=== PATIENT | male | born 1965 | race Caucasian/White ===

== ENCOUNTER 2021-05-31 08:24 | Emergency (ER) | payer SELFPAY ==
--- NOTE | ~2021-05-31 | CT_ITS ---
EXAMINATION: CT brain wo con DATE: 05/31/2021 09:15 INDICATION: Right facial swelling. TECHNIQUE: Computed tomography (CT) of the head was performed without intravenous contrast. The mA wa s adjusted according to patient size. Iterative reconstruction technique was employed. The dose-lengt h product was 681.00 mGy-cm. COMPARISON: None FINDINGS: There is no intracranial hemorrhage, acute infarction, or abnormal intracranial mass lesion . The ventricles are normal in size. There is mild mucosal thickening in the paranasal sinuses. There is dependent fluid in right maxillary sinus. There is a fracture of anterior wall of right maxillary sinus. There is right periorbital soft tissue swelling. There is a small left mastoid effusion. IMPRESSION: 1. Fracture of anterior wall of right maxillary sinus. 2. Normal brain. Reviewed, dictated and finalized at location A. TAT MANAGEMENT COORDINATOR
--- NOTE | ~2021-05-31 | CT_ITS ---
EXAMINATION: CT facial bones wo con DATE: 05/31/2021 09:47 INDICATION: Head injury. TECHNIQUE: Computed tomography (CT) of the facial bones and maxillofacial region was performed withou t intravenous contrast. Automated exposure control and iterative reconstruction technique were employ ed. The dose-length product was 0.00 mGy-cm. COMPARISON: None. FINDINGS: There is a fracture of anterior wall of right maxillary sinus with up to 2 mm depression. T here is mild mucosal thickening in the paranasal sinuses. There is a small volume of dependent fluid in right maxillary sinus. There is a small left mastoid effusion. There is right periorbital soft tis michelle swelling. There is extensive dental disease with numerous carious lesions, multiple broken teeth, and periapical lucencies of multiple teeth. IMPRESSION: 1. Acute fracture of anterior wall of right maxillary sinus. 2. Extensive dental disease. Reviewed, dictated and finalized at location A. OPATH TECH
--- NOTE | ~2021-05-31 | XR_ITS ---
EXAMINATION: XR chest 2V DATE: 05/31/2021 09:24 INDICATION: Fall. Head injury. TECHNIQUE: Frontal and lateral views of the chest were obtained on 3 radiographs. COMPARISON: None. FINDINGS: There is no pneumonia, pleural effusion, or pneumothorax. The heart size is normal. There i s a comminuted fracture of proximal left humerus. IMPRESSION: 1. No acute cardiopulmonary disease. 2. Acute comminuted fracture of proximal left humerus. Reviewed, dictated and finalized at location A. NERY PIPELINE OPERATOR
--- NOTE | ~2021-05-31 | CT_ITS ---
EXAMINATION: CT cervical spine wo con DATE: 05/31/2021 09:15 INDICATION: Head injury. TECHNIQUE: Computed tomography (CT) of the cervical spine was performed without intravenous contrast. Automated exposure control and iterative reconstruction technique were employed. The dose-length pro duct was 489.96 mGy-cm. COMPARISON: None FINDINGS: There is 11 degrees dextroscoliosis of cervicothoracic spine. There is 2 mm anterolisthesis of C4 on C5. There is moderately decreased disc height at C4-C5 and severely decreased disc height a t C5-C6 and C6-C7 with endplate remodeling. The following disc levels are specifically discussed: C2-C3: There is mild bilateral uncovertebral joint osteoarthritis. There is severe bilateral facet aristeo int osteoarthritis. There is mild bilateral neural foraminal stenosis. There is no central canal sten osis. C3-C4: There is mild bilateral uncovertebral joint osteoarthritis. There is moderate right and severe left facet joint osteoarthritis. There is no neural foraminal stenosis. There is mild central canal stenosis. C4-C5: There is severe bilateral uncovertebral joint osteoarthritis. There is severe bilateral facet joint osteoarthritis. There is mild bilateral neural foraminal stenosis. There is mild central canal stenosis. C5-C6: There is severe bilateral uncovertebral joint osteoarthritis. There is moderate right and joleen re left facet joint osteoarthritis. There is mild right and moderate left neural foraminal stenosis. There is mild central canal stenosis. C6-C7: There is severe bilateral uncovertebral joint osteoarthritis. There is severe bilateral facet joint osteoarthritis. There is mild right and moderate left neural foraminal stenosis. There is mild central canal stenosis. C7-T1: There is no uncovertebral joint osteoarthritis. There is moderate bilateral facet joint osteoa rthritis. There is no neural foraminal stenosis. There is no central canal stenosis. IMPRESSION: 1. No fracture. 2. Severe cervical spondylosis. 3. Cervicothoracic dextroscoliosis. Reviewed, dictated and finalized at location A. ER COAT PAINTER
[2021-05-31 08:26] VITALS: BP 128/60; PULSE 111; RESP 18; TEMP 35.6; O2SAT 100
--- NOTE | 2021-05-31 09:00 | ECG_ITS ---
Measurements Intervals [place] Rate: 101 P: 41 NE: 157 QRS: 7 QRSD: 118 T: 64 QT: 396 QTc: 513 Interpretive Statements SINUS TACHYCARDIA INTRAVENTRICULAR CONDUCTION DELAY DELAYED PRECORDIAL R/S TRANSITION BORDERLINE ST-T WAVE ABNORMALITY- INF/HIGH LAT LEADS BASELINE ARTIFACT- I, II, III, AVR, AVL, AVF, V1-V6 BORDERLINE ECG Electronically Signed On 05-31-2021 15:13:36 REVENUE AUDIT CLERK by Flako Billy D.O.
[2021-05-31 09:47] LABS: Basophils Percent Auto 0.4 % (0.2-1.2); Eosinophils Percent Auto 0.2 % (0-4.4); Hematocrit 33.3 % (42.0-52.0); Hemoglobin 11.5 g/dL (14.0-18.0); Immature Granulocyte Absolute 0.02 K/mm3 (0.00-0.031); Immature Granulocyte Percent A 0.4 % (0-0.5); Immature Platelet Fraction Pct 2.3 % (0.9-11.2); Lymphocytes Absolute Auto 1.12 K/mm3 (0.9-3.2); Lymphocytes Percent Auto 19.9 % (18.3-44.2); Mean Corpuscular HGB Conc 34.5 g/dl (32-36); Mean Corpuscular Hemoglobin 35.3 pg (26-34); Mean Corpuscular Volume 102.1 fl (80-100); Mean Platelet Volume 9.3 fl (7.4-10.4); Monocytes Absolute Auto 0.8 K/mm3 (0.1-0.6); Neutrophils Absolute Auto 3.7 K/mm3 (1.3-6.7); Neutrophils Percent Auto 65.1 % (45.5-73.1); Platelet Count Result 92 k/mm3 (150-375); Red Blood Count 3.26 M/mm3 (4.6-6.20); Red Cell Distribution Width 14.3 % (11.5-14.5); White Blood Count 5.6 K/mm3 (4.5-10.0)
[2021-05-31 09:56] LABS: Alanine Aminotransferase 29 U/L (4-50); Albumin Level 3.7 g/dL (3.5-5.1); Alkaline Phosphatase 256 U/L (38-126); Anion Gap 13 mmol/L (8-16); Aspartate Amino Transferase 88 U/L (17-59); Bilirubin,Total 4.7 mg/dL (0.2-1.3); Blood Urea Nitrogen 4 mg/dL (9-20); Calcium 8.4 mg/dL (8.4-10.2); Carbon Dioxide 25 mmol/L (22-30); Chloride 98 mmol/L (98-107); Creatine Kinase 369 U/L (55-170); Estimated CRCL calculation 151 ml/min; Estimated Glomerular Filt Rate > 60; Glucose 165 mg/dL (65-110); INR 1.5; Potassium 3.5 mmol/L (3.4-5.0); Prothrombin Time 17.5 Seconds (11.1-14.7); Sodium 136 mmol/L (137-145)
[2021-05-31 09:57] LABS: Partial Thromboplastin Time 40.4 SECONDS (22.3-36.8)
[2021-05-31] MEDS: SODIUM CHLORIDE 0.9% IV 1,000 ML 999 ML IV CONT (09:57)
--- NOTE | 2021-05-31 10:30 | PC.NURSE ---
Pt was cleared to remove c-collar, pt denies pain, pt presents with bruised left upper arm, facial swelling,lip swelling with blood from fall
[2021-05-31] MEDS: TETANUS,DIPHTHERIA,AC PERTUSSIS ADULT (0.5 ML) BOOSTRIX IM (10:40)
[2021-05-31 10:49] LABS: Add Urine Microscopic? YES; Appearance Urine Cloudy (Clear); Bacteria Urine 1+ /hpf; Bilirubin Urine Negative (Negative); Blood Urine 1+ (Negative); Color Urine Amber (Yellow); Glucose Urine UA 3+ mg/dL (Negative); Ketones Urine Negative (Negative); Leukocyte Esterase Ur Negative LEU/UL (Negative); Mucus Urine Few /lpf; Nitrate Urine Positive (Negative); Protein Urine Negative (Negative); RBC Urine 0-2 /hpf (0-2); Specific Grav Ur 1.014 (1.001-1.035); Squamous Epithelial Cell Urine Rare /hpf (Few); WBC Urine 0-3 /hpf
--- NOTE | 2021-05-31 11:42 | ED.FALL ---
HPI - Fall General Chief Complaint: Fall Stated Complaint: fall Time Seen by Provider: 05/31/21 08:46 Source: patient History of Present Illness HPI Narrative: Patient presents after a fall reports he is not from the area. Patient ports he was found next to a bike path because his legs gave out. Reports a history of his legs giving out. Reports he was walking back to his hotel because his taxes and call for did not arrive and that he felt like. Patient ports he had a hard time getting up and calling for help until he was found he states he was outside for most of the night and feels cold. Patient reports he has some facial pain but otherwise feels okay. Denies any loss of consciousness or use of blood thinners denies any focal numbness or weakness denies headache, nausea, vomiting. Denies any prodrome prior to his fall such as chest pain shortness of breath or dizziness. Denies recent cough, congestion, fevers or chills Related Data Allergies Allergy/AdvReac Type Severity Reaction Status Date / Time No Known Allergies Allergy Verified 05/31/21 10:00 Review of Systems Review of Systems: CONSTITUTIONAL: Denies fever, chills, or sweats. EYES: Denies visual changes, redness, or discharge. ENT: Denies rhinorrhea, congestion, sore throat, or otalgia. CARDIOVASCULAR: Denies chest pain, palpitations, or edema. RESPIRATORY: Denies cough or dyspnea. GASTROINTESTINAL: Denies abdominal pain, nausea, vomiting, or diarrhea. GENITOURINARY: Denies dysuria or hematuria. SKIN: Denies rash or itching. MUSCULOSKELETAL: Denies back pain, joint pain, or myalgia. NEUROLOGIC: Denies headache, numbness, dizziness, or weakness. PSYCHIATRIC: Denies anxiety or depression. All systems reviewed & are unremarkable except as noted in HPI and below PMFSH Past Medical History Medical History (Updated 05/31/21 @ 11:50 by David Johnson MD) Patient denies significant medical history Social History Social History (Updated 05/31/21 @ 11:44 by David Johnson MD) Substance use: never Exam Narrative: GENERAL: Well-appearing, well-nourished, and in no acute distress. HEAD: Facial swelling on the right face with ecchymoses and superficial abrasions EYES: PERRLA and EOMI. ENT: Nares clear, no rhinorrhea or epistaxis. Mucous membranes moist. Multiple dental fractures NECK: Supple. No masses. No midline neck pain CHEST: Clear to auscultation. No respiratory distress. No wheezes rales or rhonchi HEART: Regular rate and rhythm. No murmur heard. Normal peripheral pulses. ABDOMEN: Soft, nontender, nondistended, normal active bowel sounds. EXTREMITIES: Normal range of motion. No edema. SKIN: Warm, dry, no rash. NEURO: No focal deficits. Alert and oriented x3. PSYCH: Normal mood and affect. Course Reevaluation(s) Reevaluation #1: Patient is sleeping comfortably and would like to go home Date: 05/31/21 Time: 11:45 Vital Signs Vital signs: Vital Signs Temperature 35.6 C L 05/31/21 08:26 Pulse Rate 111 H 05/31/21 08:26 Respiratory Rate 18 05/31/21 08:26 Blood Pressure 128/60 05/31/21 08:26 Pulse Oximetry 100 05/31/21 08:26 Temperature 35.6 C L 05/31/21 08:26 Pulse Rate 97 05/31/21 12:33 Respiratory Rate 18 05/31/21 12:33 Blood Pressure 136/75 05/31/21 12:33 Pulse Oximetry 97 05/31/21 12:33 MDM - Fall MDM Narrative Medical decision making narrative: H&P as above, vss, pt looks clinically well, exam trauma to the right face no focal neurological deficits no open wounds amenable to repair with sutures or Dermabond, labs with mild elevation in CK otherwise clinically unremarkable, img maxillary fracture there is no evidence of entrapment, additional labs/img considered. symptomatic relief available as needed, patient treated with fluids on reevaluation pt continues to looks clinically well and is sleeping comfortably. Suspect mechanical fall with prolonged downtime, dns intracranial hemorrhage, sepsis, ACS, PE. mellisa
--- NOTE | 2021-05-31 12:30 | PC.NURSE ---
Pt ambulated well and ready for discharge stating he will call himself a taxi
[2021-05-31 12:33] VITALS: BP 136/75; PULSE 97; RESP 18; O2SAT 97
== END 2021-05-31 12:30 | disposition home or self-care (01) ==
PROVIDERS: Emergency Provider Emergency Medicine
DX: S00.81XA Abrasion of other part of head, initial encounter (principal); S02.40CA Maxillary fracture, right side, initial encounter for closed fracture; S09.90XA Unspecified injury of head, initial encounter; S02.5XXA Fracture of tooth (traumatic), initial encounter for closed fracture; Z23 Encounter for immunization; W19.XXXA Unspecified fall, initial encounter
CPT/HCPCS: 36415; 70450; 70486; 71046; 72125; 80053; 81001; 82550; 85025; 85055; 85610; 85730; 90471; 90715; 93005; 96360; 99284; J7030